=== PATIENT | male | born 1960 | race Caucasian/White ===

== ENCOUNTER 2016-05-25 08:00 | Outpatient (CLI) | payer MEDICAID | END 2016-05-25 08:01 | disposition home or self-care (01) | DX: M25.511 Pain in right shoulder (principal) ==

== ENCOUNTER 2016-07-20 15:13 | Outpatient (CLI) | payer MEDICAID | END 2016-07-20 15:14 | disposition home or self-care (01) | DX: E11.65 Type 2 diabetes mellitus with hyperglycemia (principal) ==

== ENCOUNTER 2016-07-22 08:00 | Outpatient (CLI) | payer MEDICAID | END 2016-07-22 23:59 | DX: M25.511 Pain in right shoulder (principal) ==

== ENCOUNTER 2016-10-25 11:03 | Outpatient (CLI) | payer MEDICAID ==
[2016-10-25 19:03] LABS: HEMOGLOBIN A1C 1.07 g/dL
== END 2016-10-25 11:04 | disposition home or self-care (01) ==
LOC: LAB.S 11:03
PROVIDERS: ATTEND Nurse Practitioner Family
DX: E11.65 Type 2 diabetes mellitus with hyperglycemia (principal)
CPT/HCPCS: 36415; 83036

== ENCOUNTER 2017-02-28 11:07 | Outpatient (CLI) | payer MEDICAID ==
[2017-02-28 18:54] LABS: BASOPHILS # (AUTO) 0.1 10^3/uL (0.0-0.1); BASOPHILS % (AUTO) 0.3 %; EOSINOPHILS # (AUTO) 0.7 10^3/uL (0.0-0.7); HCT - HEMATOCRIT 48.3 % (42.0-52.0); LYMPHOCYTES # (AUTO) 3.9 10^3/uL (1.5-3.5); LYMPHOCYTES % (AUTO) 20.8 %; MEAN CORPUSCULAR HGB CONC 33.1 g/dL (32.0-36.0); MEAN CORPUSCULAR VOLUME 87.6 fL (80.0-94.0); MEAN PLATELET VOLUME 9.1 fL (7.4-11.4); MONOCYTES # (AUTO) 0.8 10^3/uL (0.0-1.0); MONOCYTES % (AUTO) 4.4 %; NEUTROPHILS # (AUTO) 13.2 10^3/uL (1.5-6.6); NEUTROPHILS % (AUTO) 70.5 %; RED BLOOD COUNT 5.51 10^6/uL (4.70-6.10); UNCORRECTED WHITE BLOOD COUNT 18.7 x10^3/uL; WHITE BLOOD COUNT 18.7 x10^3/uL (4.8-10.8)
[2017-02-28 19:16] LABS: BILIRUBIN,URINE NEGATIVE (NEGATIVE); PH,URINE 5.5 PH (5.0-7.5)
[2017-02-28 19:19] LABS: ALBUMIN/GLOBULIN RATIO 1.6 (1.0-2.2); BILIRUBIN,TOTAL 0.3 mg/dL (0.2-1.0); BUN - BLOOD UREA NITROGEN 12 mg/dL (6-20); CALCIUM 9.3 mg/dL (8.5-10.3); CARBON DIOXIDE - CO2 29 mmol/L (21-32); CHLORIDE 100 mmol/L (101-111); CHOL/HDL RATIO 3.2 (<5.0); CHOLESTEROL 121 mg/dL; CREATININE 0.6 mg/dL (0.6-1.2); GFR - MDRD 139 (>89); GLUCOSE 93 mg/dL (70-100); HDL CHOLESTEROL 38 mg/dL; LDL/HDL RATIO 1.6 (<3.6); POTASSIUM 4.2 mmol/L (3.5-5.0); SODIUM 135 mmol/L (135-145); TOTAL PROTEIN 7.1 g/dL (6.7-8.2); TRIGLYCERIDES 106 mg/dL; VLDL CHOLESTEROL 21 mg/dL
[2017-02-28 19:49] LABS: UR CULTURE IF IND NOT INDICATED; WBC,URINE 0-3 /HPF (0-3)
[2017-02-28 20:13] LABS: HEMOGLOBIN A1C 1.03 g/dL
== END 2017-02-28 11:08 | disposition home or self-care (01) ==
LOC: LAB.WCP 11:07
PROVIDERS: ATTEND Nurse Practitioner Family
DX: E11.65 Type 2 diabetes mellitus with hyperglycemia (principal); E78.5 Hyperlipidemia, unspecified
CPT/HCPCS: 36415; 80053; 80061; 81001; 82043; 82570; 83036; 84443; 85025; 87086

== ENCOUNTER 2017-03-04 15:00 | Outpatient (CLI) | payer MEDICAID | END 2017-03-04 15:01 | disposition home or self-care (01) | LOC: LAB.WCP 15:00 | PROVIDERS: ATTEND Nurse Practitioner Family | DX: Z20.5 Contact with and (suspected) exposure to viral hepatitis (principal) | CPT/HCPCS: 36415; 86803 ==

== ENCOUNTER 2017-06-02 08:00 | Outpatient (CLI) | payer MEDICAID ==
[2017-06-02 13:41] LABS: HB2 TOTAL 17.9 g/dL; HEMOGLOBIN A1C 1.1 g/dL; HEMOGLOBIN A1C % 7.8 % (4.6-6.2)
== END 2017-06-02 08:01 | disposition home or self-care (01) ==
LOC: LAB.WCP 08:00
PROVIDERS: ATTEND Nurse Practitioner Family
DX: E11.65 Type 2 diabetes mellitus with hyperglycemia (principal)
CPT/HCPCS: 36415; 83036

== ENCOUNTER 2017-08-31 08:00 | Outpatient (CLI) | payer MEDICAID ==
[2017-08-31 19:24] LABS: HB2 TOTAL 17.6 g/dL; HEMOGLOBIN A1C 1.21 g/dL; HEMOGLOBIN A1C % 8.4 % (4.6-6.2)
== END 2017-08-31 08:01 ==
LOC: LAB.WCP 08:00
PROVIDERS: ATTEND Nurse Practitioner Family
DX: E11.65 Type 2 diabetes mellitus with hyperglycemia (principal)
CPT/HCPCS: 36415; 83036

== ENCOUNTER 2017-12-01 08:00 | Outpatient (CLI) | payer MEDICAID ==
[2017-12-01 12:50] LABS: PSA FREE 0.88 ng/mL (0.16-2.81)
[2017-12-01 12:51] LABS: HB2 TOTAL 17.7 g/dL; HEMOGLOBIN A1C 1.23 g/dL; HEMOGLOBIN A1C % 8.5 % (4.6-6.2)
[2017-12-01 12:52] LABS: PSA TOTAL 6.21 ng/mL (0.000-2.000)
== END 2017-12-01 08:01 | disposition home or self-care (01) ==
LOC: LAB.WCP 08:00
PROVIDERS: ATTEND Nurse Practitioner Family
DX: R97.20 Elevated prostate specific antigen [PSA] (principal); E11.9 Type 2 diabetes mellitus without complications
CPT/HCPCS: 36415; 83036; 84154

== ENCOUNTER 2017-12-21 16:05 | Outpatient (CLI) | payer MEDICAID ==
--- NOTE | 2017-12-22 12:42 | XRAY Report ---
Procedure Date: 12/21/2017 Accession Number: [id number] / [id number] Procedure: XRS - Cervical Spine 2 View CPT Code: FULL RESULT: EXAM: Cervical Spine 2 View DATE: 12/21/2017 4:38 PM CLINICAL HISTORY: SHOULDER, NECK BACK PAIN, RIGHT COMPARISON: None. TECHNIQUE: 3 views. FINDINGS: Alignment: Straightening of the normal cervical lordosis. Bones: The cervical vertebral bodies and posterior elements are well visualized from the skull base through C7-T1. No fractures or bone lesions. Disks: Normal. Disk heights are maintained. Facets: No degenerative disease. Soft Tissues: Scant carotid calcifications. No prevertebral soft tissue swelling. The visualized lung apices are clear. Minimal degenerative disease about the uncovertebral joints. IMPRESSION: Minimal degenerative disease, otherwise normal cervical spine radiographs. [facility]
--- NOTE | 2017-12-22 12:47 | XRAY Report ---
Procedure Date: 12/21/2017 Accession Number: [id number] / [id number] Procedure: XRS - Shoulder 2 View RT CPT Code: FULL RESULT: EXAM: Shoulder 2 View RT DATE: 12/21/2017 4:38 PM CLINICAL HISTORY: SHOULDER, NECK BACK PAIN, RIGHT COMPARISON: None. TECHNIQUE: 3 views. FINDINGS: Bones: Normal. No fracture or bone lesion. Joints: The glenohumeral articulation is normal. The acromioclavicular joint demonstrates mild degenerative changes. Soft tissues: A 3 mm well-rounded calcific density medial to the proximal humeral diametaphysis is of uncertain clinical significance. IMPRESSION: No fracture or dislocation. Soft tissue calcification of uncertain significance as described. This is less likely to represent an occult fracture donor fragment. [facility]
== END 2017-12-21 16:06 | disposition home or self-care (01) ==
LOC: DI.S 16:05
PROVIDERS: ATTEND Nurse Practitioner Family
DX: M25.511 Pain in right shoulder (principal); M54.2 Cervicalgia
CPT/HCPCS: 72040

== ENCOUNTER 2018-03-01 11:20 | Outpatient (CLI) | payer MEDICAID ==
[2018-03-01 18:47] LABS: BASOPHILS # (AUTO) 0.1 10^3/uL (0.0-0.1); BASOPHILS % (AUTO) 0.4 %; EOSINOPHILS # (AUTO) 0.7 10^3/uL (0.0-0.7); EOSINOPHILS % (AUTO) 5.2 %; HGB - HEMOGLOBIN 15.6 g/dL (14.0-18.0); LYMPHOCYTES # (AUTO) 2.9 10^3/uL (1.5-3.5); MEAN CORPUSCULAR HEMOGLOBIN 30.2 pg (27.0-31.0); MEAN CORPUSCULAR HGB CONC 33.7 g/dL (32.0-36.0); MEAN CORPUSCULAR VOLUME 89.5 fL (80.0-94.0); MEAN PLATELET VOLUME 9.1 fL (7.4-11.4); MONOCYTES # (AUTO) 0.9 10^3/uL (0.0-1.0); MONOCYTES % (AUTO) 6.6 %; NEUTROPHILS # (AUTO) 8.6 10^3/uL (1.5-6.6); NEUTROPHILS % (AUTO) 65.8 %; PLT - PLATELET COUNT 281 10^3/uL (130-450); RED BLOOD COUNT 5.18 10^6/uL (4.70-6.10); RED CELL DISTRIBUTION WIDTH 13.7 % (12.0-15.0); WHITE BLOOD COUNT 13.1 x10^3/uL (4.8-10.8)
[2018-03-01 19:22] LABS: CHOL/HDL RATIO 2.8 (<5.0); CHOLESTEROL 133 mg/dL; HDL CHOLESTEROL 48 mg/dL; LDL CHOLESTEROL,CALCULATED 65 mg/dL; LDL/HDL RATIO 1.4 (<3.6); VLDL CHOLESTEROL 20 mg/dL
[2018-03-01 20:14] LABS: HB2 TOTAL 16.8 g/dL; HEMOGLOBIN A1C 1.02 g/dL; HEMOGLOBIN A1C % 7.7 % (4.6-6.2)
== END 2018-03-01 11:21 | disposition home or self-care (01) ==
LOC: LAB.WCP 11:20
PROVIDERS: ATTEND Nurse Practitioner Family
DX: E78.5 Hyperlipidemia, unspecified (principal); E11.65 Type 2 diabetes mellitus with hyperglycemia
CPT/HCPCS: 36415; 80061; 82043; 83036; 83721; 84443; 85025

== ENCOUNTER 2018-07-06 13:33 | Outpatient (CLI) | payer MEDICAID ==
[2018-07-06 19:45] LABS: HEMOGLOBIN A1C 1.09 g/dL
== END 2018-07-06 13:34 | disposition home or self-care (01) ==
LOC: LAB.WCP 13:33
PROVIDERS: ATTEND Nurse Practitioner Family
DX: E11.8 Type 2 diabetes mellitus with unspecified complications (principal)
CPT/HCPCS: 36415; 83036

== ENCOUNTER 2018-10-06 13:13 | Outpatient (CLI) | payer MEDICAID ==
[2018-10-06 19:19] LABS: HB2 TOTAL 16.8 g/dL; HEMOGLOBIN A1C 1.1 g/dL; HEMOGLOBIN A1C % 8.1 % (4.6-6.2)
== END 2018-10-06 13:14 | disposition home or self-care (01) ==
LOC: LAB.WCP 13:13
PROVIDERS: ATTEND Nurse Practitioner Family
DX: E11.65 Type 2 diabetes mellitus with hyperglycemia (principal)
CPT/HCPCS: 36415; 83036

== ENCOUNTER 2018-12-20 10:09 | Outpatient (CLI) | payer MEDICAID ==
[2018-12-20 13:41] LABS: HB2 TOTAL 18.4 g/dL; HEMOGLOBIN A1C 1.26 g/dL; HEMOGLOBIN A1C % 8.4 % (4.6-6.2)
== END 2018-12-20 23:59 | disposition home or self-care (01) ==
LOC: LAB.WCP 10:09
PROVIDERS: ATTEND Physician Assistant Medical
DX: E11.65 Type 2 diabetes mellitus with hyperglycemia (principal)
CPT/HCPCS: 36415; 83036

== ENCOUNTER 2019-03-19 08:00 | Outpatient (CLI) | payer MEDICAID ==
[2019-03-19 21:52] LABS: HB2 TOTAL 16.8 g/dL; HEMOGLOBIN A1C 1.1 g/dL; HEMOGLOBIN A1C % 8.1 % (4.6-6.2)
== END 2019-03-19 08:01 | disposition home or self-care (01) ==
LOC: LAB.WCP 08:00
PROVIDERS: ATTEND Internal Medicine
DX: E11.65 Type 2 diabetes mellitus with hyperglycemia (principal)
CPT/HCPCS: 36415; 83036

== ENCOUNTER 2019-05-11 14:25 | Outpatient (CLI) | payer MEDICAID ==
[2019-05-11 18:39] LABS: BASOPHILS % (AUTO) 0.3 %; EOSINOPHILS # (AUTO) 0.7 10^3/uL (0.0-0.7); EOSINOPHILS % (AUTO) 5.5 %; HGB - HEMOGLOBIN 15.6 g/dL (14.0-18.0); LYMPHOCYTES # (AUTO) 3.7 10^3/uL (1.5-3.5); MEAN CORPUSCULAR HEMOGLOBIN 29.2 pg (27.0-31.0); MEAN CORPUSCULAR HGB CONC 32.6 g/dL (32.0-36.0); MEAN CORPUSCULAR VOLUME 89.5 fL (80.0-94.0); MEAN PLATELET VOLUME 10.8 fL (7.4-11.4); MONOCYTES # (AUTO) 0.8 10^3/uL (0.0-1.0); MONOCYTES % (AUTO) 6.6 %; NEUTROPHILS % (AUTO) 57.1 %; PLT - PLATELET COUNT 304 10^3/uL (130-450); RED BLOOD COUNT 5.35 10^6/uL (4.70-6.10); RED CELL DISTRIBUTION WIDTH 13.1 % (12.0-15.0); WHITE BLOOD COUNT 12.3 x10^3/uL (4.8-10.8)
[2019-05-11 19:04] LABS: ALBUMIN/GLOBULIN RATIO 1.5 (1.0-2.2); ALKALINE PHOSPHATASE 43 IU/L (42-121); ALT ALANINE AMINOTRANSFERASE 14 IU/L (10-60); AST ASPARTATE AMINOTRANSFERASE 16 IU/L (10-42); BILIRUBIN,TOTAL 0.3 mg/dL (0.2-1.0); BUN - BLOOD UREA NITROGEN 15 mg/dL (6-20); CALCIUM 9.2 mg/dL (8.5-10.3); CARBON DIOXIDE - CO2 30 mmol/L (21-32); CHLORIDE 102 mmol/L (101-111); CHOL/HDL RATIO 3.3 (<5.0); CHOLESTEROL 132 mg/dL; CREATININE 0.6 mg/dL (0.6-1.2); GFR - MDRD 137 (>89); GLUCOSE 246 mg/dL (70-100); HDL CHOLESTEROL 40 mg/dL; LDL CHOLESTEROL,CALCULATED 69 mg/dL; LDL/HDL RATIO 1.7 (<3.6); SODIUM 140 mmol/L (135-145); TOTAL PROTEIN 6.7 g/dL (6.7-8.2); VLDL CHOLESTEROL 23 mg/dL
== END 2019-05-11 23:59 | disposition home or self-care (01) ==
LOC: LAB.WCP 14:25
PROVIDERS: ATTEND Physician Assistant Medical
DX: Z51.81 Encounter for therapeutic drug level monitoring (principal); Z79.899 Other long term (current) drug therapy; E78.5 Hyperlipidemia, unspecified
CPT/HCPCS: 36415; 80053; 80061; 83721; 85025

== ENCOUNTER 2019-06-20 08:00 | Outpatient (CLI) | payer MEDICAID ==
[2019-06-20 19:43] LABS: HB2 TOTAL 16.2 g/dL; HEMOGLOBIN A1C 1.02 g/dL; HEMOGLOBIN A1C % 7.9 % (4.6-6.2)
[2019-06-20 19:49] LABS: CALCIUM 9.1 mg/dL (8.5-10.3); CREATININE 0.6 mg/dL (0.6-1.2)
== END 2019-06-20 23:59 | disposition home or self-care (01) ==
LOC: LAB.WCP 08:00
PROVIDERS: ATTEND Physician Assistant Medical
DX: E11.8 Type 2 diabetes mellitus with unspecified complications (principal)
CPT/HCPCS: 36415; 80048; 83036

== ENCOUNTER 2019-06-21 08:00 | Outpatient (CLI) | payer MEDICAID ==
--- NOTE | 2019-06-21 14:33 | XRAY Report ---
Reason: LEFT SHOULDER PAIN Procedure Date: 06/21/2019 Accession Number: [id number] / [id number] Procedure: WCP - Shoulder 3 View LT CPT Code: Final Report FULL RESULT: EXAM: LEFT SHOULDER RADIOGRAPHY 3 VIEWS EXAM DATE: 06/21/2019. CLINICAL HISTORY: LEFT shoulder pain. COMPARISON: None. TECHNIQUE: AP, Grashey and scapular Y views. FINDINGS: Bones: Normal. No fracture or bone lesion. Joints: Mild narrowing and spurring of the acromioclavicular joint. The glenohumeral joint appears normal. Soft tissues: No calcifications. The visualized left lung is clear. IMPRESSION: Mild degenerative changes of the acromioclavicular joint. Otherwise normal examination. [facility]
== END 2019-06-21 08:01 | disposition home or self-care (01) ==
LOC: DI.WCP 08:00
PROVIDERS: ATTEND Physician Assistant Medical
DX: M19.012 Primary osteoarthritis, left shoulder (principal)

== ENCOUNTER 2019-07-17 15:04 | Outpatient (CLI) | payer MEDICAID ==
[2019-07-17 15:05] LABS: MUDS CUTOFF CONCENTRATIONS CUTOFF CONC BELOW:
[2019-07-17 19:08] LABS: AMPHETAMINE SCREEN,URINE NEGATIVE (NEGATIVE); BENZODIAZEPINES SCREEN, URINE NEGATIVE (NEGATIVE); COCAINE SCREEN URINE NEGATIVE (NEGATIVE); METHADONE SCREEN, URINE NEGATIVE (NEGATIVE); METHAMPHETAMINES SCREEN, URINE NEGATIVE (NEGATIVE); OPIATE SCREEN, URINE NEGATIVE (NEGATIVE); TRICYCLIC ANTIDEPRESSANT,URINE NEGATIVE (NEGATIVE)
[2019-07-17 19:09] LABS: OXYCODONE SCREEN, URINE NEGATIVE (NEGATIVE); PROPOXYPHENE SCREEN, URINE NEGATIVE (NEGATIVE)
[2019-07-17 19:11] LABS: PSA FREE 0.779 ng/mL (0.16-2.81)
[2019-07-17 19:12] LABS: PSA TOTAL 4.697 ng/mL (0.000-2.000)
[2019-07-17 19:13] LABS: CREATININE,URINE 309.4 mg/dL; MICROALBUM/CREATININE RATIO,UR 29.4 ug/mg (<30.0); MICROALBUMIN,URINE 9.1 mg/dL (0-300.0)
== END 2019-07-17 23:59 | disposition home or self-care (01) ==
LOC: LAB.WCP 15:04
PROVIDERS: ATTEND Physician Assistant Medical
DX: G89.29 Other chronic pain (principal); E11.65 Type 2 diabetes mellitus with hyperglycemia; Z12.5 Encounter for screening for malignant neoplasm of prostate; R97.20 Elevated prostate specific antigen [PSA]; F11.90 Opioid use, unspecified, uncomplicated
CPT/HCPCS: 36415; 80306; 82043; 82570; 84153; 84154

== ENCOUNTER 2019-09-25 08:00 | Outpatient (CLI) | payer MEDICAID ==
[2019-09-25 13:33] LABS: HB2 TOTAL 17.3 g/dL; HEMOGLOBIN A1C 1.37 g/dL; HEMOGLOBIN A1C % 9.4 % (4.6-6.2)
[2019-09-25 13:36] LABS: CALCIUM 9.3 mg/dL (8.5-10.3); CREATININE 0.6 mg/dL (0.6-1.2)
== END 2019-09-25 23:59 | disposition home or self-care (01) ==
LOC: LAB.WCP 08:00
PROVIDERS: ATTEND Physician Assistant Medical
DX: E11.65 Type 2 diabetes mellitus with hyperglycemia (principal)
CPT/HCPCS: 36415; 80048; 83036

== ENCOUNTER 2020-02-05 11:10 | Outpatient (CLI) | payer MEDICAID ==
[2020-02-05 19:19] LABS: CALCIUM 9.3 mg/dL (8.5-10.3); CREATININE 0.7 mg/dL (0.6-1.2)
[2020-02-05 20:00] LABS: HEMOGLOBIN A1c% 9.1 % (4.27-6.07)
== END 2020-02-05 23:59 | disposition home or self-care (01) ==
LOC: LAB.WCP 11:10
PROVIDERS: ATTEND Nurse Practitioner Family
DX: E10.49 Type 1 diabetes mellitus with other diabetic neurological complication (principal)
CPT/HCPCS: 36415; 80048; 83036

== ENCOUNTER 2020-04-06 09:09 | Emergency (ER) | payer MEDICAID ==
[2020-04-06] MEDS ORDERED: ASPIRIN 325 MG TABLET PO STA (09:36)
--- NOTE | 2020-04-06 09:53 | ED Physician Documentation ---
History of Present Illness - Stated complaint Stated Complaint: LT SHOULDER PX - Chief complaint Chief Complaint: Ext Problem - History obtained from History obtained from: Patient - Additonal information Additional information: 59-year-old man, smoker, with past medical history diabetes high blood pressure cholesterol and COPD presents with sudden onset left shoulder pain radiating to back starting while driving from [place] yesterday. Patient has had progressive worsening of pain and is now unable to move the arm without pain. constant, aching, moderate severity, without associated features. denies Fever, shortness of breath, nausea, diaphoresis, tearing pain in the back. No hemoptysis, no history of clots, no steroid use. Review of Systems Ten Systems: 10 systems reviewed and negative Constitutional: denies: Fever, Chills Cardiac: denies: Chest pain / pressure, Palpitations Respiratory: reports: Dyspnea (mild dyspnea 2/2 pain). denies: Cough GI: denies: Nausea, Vomiting Musculoskeletal: reports: Neck pain, Back pain, Extremity pain (L arm pain) PD PAST MEDICAL HISTORY - Past Medical History Cardiovascular: None, High cholesterol Respiratory: Asthma Endocrine/Autoimmune: Type 2 diabetes GI: GERD, Other : None HEENT: Chronic hearing loss Psych: None Musculoskeletal: Chronic back pain, Other Derm: None - Past Surgical History General: Cholecystectomy, Other Ortho: Arthroscopic surgery - Present Medications Home Medications: Ambulatory Orders Medication Instructions Recorded Confirmed Acetaminophen/Cod 300/30 [Tylenol 1 each PO Q4-6H PRN #3 tablet 04/06/20 #3] Albuterol 04/06/20 Gabapentin [Neurontin] 400 mg PO 04/06/20 Glipizide 5 mg PO 04/06/20 metFORMIN [Glucophage] 500 mg PO ONCE 04/06/20 04/06/20 - Allergies Allergies/Adverse Reactions: Allergies Allergy/AdvReac Type Severity Reaction Status Date / Time NSAIDS (Non-Steroidal AdvReac Nausea Verified 04/06/20 09:28 Anti-Inflamma oxycodone HCl * AdvReac Rash Verified 04/06/20 09:28 [From Percocet] - Social History Does the pt smoke?: Yes Smoking Status: Current every day smoker Does the pt drink ETOH?: No Does the pt have substance abuse?: No - Immunizations Immunizations are current?: No - POLST Patient has POLST: No PD ED PE NORMAL - Vitals Vital signs reviewed: Yes - General General: Alert and oriented X 3 - HEENT HEENT: Atraumatic, PERRL, EOMI - Neck Neck: No bony TTP, Other (L lateral neck ttp in trapezius muscle distribution. ) - Cardiac Cardiac: RRR - Respiratory Respiratory: No respiratory distress, Clear bilaterally - Abdomen Abdomen: Non tender, Non distended - Male Male : Deferred - Rectal Rectal: Deferred - Back Back: No spinal TTP - Derm Derm: Normal color, Warm and dry - Extremities Extremities: No deformity, Other (2+ pulses all extremities. L shoulder tender with rom) - Neuro Neuro: Alert and oriented X 3, Other (sensorineural intact all extremities) - Psych Psych: Normal mood, Normal affect Results - Vitals Vitals: Vital Signs - 24 hr 04/06/20 04/06/20 09:20 10:28 Temperature 37.1 C Heart Rate 98 78 Respiratory 18 18 Rate Blood Pressure 127/81 H 141/82 H O2 Saturation 99 99 Oxygen O2 Source Room air - EKG (time done) 0940 Rate: Rate (enter#) (109) Rhythm: Sinus tachycardia [place]: RAD Compare to prior EKG: Unchanged from prior EKG (prior ekg 05/10/15) Computer interpretation: Agree with computer - Labs Labs: Laboratory Tests 04/06/20 04/06/20 04/06/20 10:05 10:05 10:05 WBC 14.6 H RBC 5.65 Hgb 16.9 Hct 50.2 MCV 88.8 MCH 29.9 MCHC 33.7 RDW 12.8 Plt Count 276 MPV 10.3 Neut # (Auto) 10.0 H Lymph # (Auto) 3.0 [place] # (Auto) 0.8 Eos # (Auto) 0.7 Baso # (Auto) 0.1 Absolute Nucleated RBC 0.00 Nucleated RBC % 0.0 D-Dimer 245.3 Sodium 137 Potassium 4.0 Chloride 100 L Carbon Dioxide 25 Anion Gap 12.0 BUN 19 Creatinine 0.5 L Estimated GFR (MDRD) 170 Glucose 265 H Calcium 9.4 Total Bilirubin 0.5 AST 16 ALT 15 Alkaline Phosphatase 43 Troponin I High Sens Total Protein 7.2 Albumin 4.1 Globulin 3.1 Albumin/Globulin Ratio 1.3 Lipase 17 L 04/06/20 10:05 WBC RBC Hgb Hct MCV MCH MCHC RDW Plt Count MPV Neut # (Auto) Lymph # (Auto) [place] # (Auto) Eos # (Auto) Baso # (Auto) Absolute Nucleated RBC Nucleated RBC % D-Dimer Sodium Potassium Chloride Carbon Dioxide Anion Gap BUN Creatinine Estimated GFR (MDRD) Glucose Calcium Total Bilirubin AST ALT Alkaline Phosphatase Troponin I High Sens 2.9 Total Protein Albumin Globulin Albumin/Globulin Ratio Lipase PD MEDICAL DECISION MAKING - ED course Complexity details: reviewed results, re-evaluated patient, d/w patient ED course: 59-year-old man with past medical history of chronic upper back pain and osteoarthritis presents with left shoulder pain moving to neck and back. Pain is in muscular distribution and reproducible with palpation and range of motion exercises. Unfortunately it did not resolve with medications in the emergency room so patient was counseled to follow-up with physical therapy and continue with conservative management. Cardiac etiology unlikely given atypical symptoms. Patient counseled to follow-up with primary for cardiology referral.strict return precautions given. Departure - Departure Disposition: Home, Self Care Clinical Impression: Shoulder pain, left Condition: Stable Instructions: ED Strain Muscle Ext Prescriptions: Acetaminophen/Cod 300/30 [Tylenol #3] 1 each PO Q4-6H PRN #3 tablet PRN Reason: Pain Comments: You have been seen in the emergency department for shoulder pain. We checked your heart and there were no new problems on bloodwork, ekg, and chest xray. You have severe osteoarthritis of the left shoulder on your shoulder xray. You will benefit from seeing a physical therapist. Consider asking your doctor for a TENS unit to relieve your pain. Follow-up with [facility] at [address], [place]. Phone number [phone] You Should also follow-up with your primary doctor for further heart testing if you have not had a stress test in the past 2 to 3 years. Your primary can refer you to a plasma center nurse. Discharge Date/Time: 04/06/20 11:24
--- NOTE | 2020-04-06 10:08 | XRAY Report ---
PROCEDURE: Shoulder 2 View LT INDICATIONS: shoulder pain TECHNIQUE: 3 views of the shoulder were acquired. COMPARISON: None. FINDINGS: Bones: No fractures or dislocations. No suspicious bony lesions. Visualized ribs appear intact. M ild periarticular osteophyte formation at the acromioclavicular and glenohumeral joint. Soft tissues: No suspicious soft tissue calcifications. IMPRESSION: Osteoarthritis. No acute fracture. No osseous lesion. If symptoms and/or clinical suspic ion for pathology continue, further assessment with repeat plain films, or advanced imaging (e.g., CT , MRI, or bone scan) is recommended for further assessment. Reviewed by: Modesto Shell MD on 04/06/2020 9:07 AM [facility] Approved by: Modesto Shell MD on 04/06/2020 9:07 AM [facility] Station ID: [id number]
--- NOTE | 2020-04-06 10:08 | XRAY Report ---
PROCEDURE: Chest 1 View X-Ray INDICATIONS: Chest Pain TECHNIQUE: One view of the chest was acquired. COMPARISON: 08.03.14 FINDINGS: Surgical changes and devices: None. Lungs and pleura: No pleural effusions or pneumothorax. Lungs are clear. Mediastinum: Mediastinal contours appear normal. Heart size is normal. Bones and chest wall: No suspicious bony lesions. Overlying soft tissues appear unremarkable. IMPRESSION: No acute process. Reviewed by: Modesto Shell MD on 04/06/2020 9:06 AM [facility] Approved by: Modesto Shell MD on 04/06/2020 9:06 AM [facility] Station ID: [id number]
[2020-04-06 10:09] LABS: BASOPHILS # (AUTO) 0.1 10^3/uL (0.0-0.1); BASOPHILS % (AUTO) 0.3 %; EOSINOPHILS # (AUTO) 0.7 10^3/uL (0.0-0.7); HGB - HEMOGLOBIN 16.9 g/dL (14.0-18.0); LYMPHOCYTES % (AUTO) 20.6 %; MEAN CORPUSCULAR HEMOGLOBIN 29.9 pg (27.0-31.0); MEAN CORPUSCULAR HGB CONC 33.7 g/dL (32.0-36.0); MEAN CORPUSCULAR VOLUME 88.8 fL (80.0-94.0); MEAN PLATELET VOLUME 10.3 fL (7.4-11.4); MONOCYTES # (AUTO) 0.8 10^3/uL (0.0-1.0); MONOCYTES % (AUTO) 5.5 %; NEUTROPHILS % (AUTO) 68.2 %; PLT - PLATELET COUNT 276 10^3/uL (130-450); RED BLOOD COUNT 5.65 10^6/uL (4.70-6.10); RED CELL DISTRIBUTION WIDTH 12.8 % (12.0-15.0); WHITE BLOOD COUNT 14.6 x10^3/uL (4.8-10.8)
[2020-04-06 10:26] LABS: ALBUMIN 4.1 g/dL (3.2-5.5); ALBUMIN/GLOBULIN RATIO 1.3 (1.0-2.2); BILIRUBIN,TOTAL 0.5 mg/dL (0.2-1.0); CALCIUM 9.4 mg/dL (8.5-10.3); CREATININE 0.5 mg/dL (0.6-1.2); TOTAL PROTEIN 7.2 g/dL (6.7-8.2)
[2020-04-06] MEDS ORDERED: ACETAMINOPHEN/CODEINE 300 MG/30 MG TABLET PO STA (10:43)
[2020-04-06 11:04] VITALS: BP 141/82
== END 2020-04-06 11:24 | disposition home or self-care (01) ==
LOC: ED 09:09
DX: M25.512 Pain in left shoulder (principal); M19.012 Primary osteoarthritis, left shoulder; R00.0 Tachycardia, unspecified; E11.9 Type 2 diabetes mellitus without complications; I10 Essential (primary) hypertension; F17.200 Nicotine dependence, unspecified, uncomplicated; Z79.84 Long term (current) use of oral hypoglycemic drugs
CPT/HCPCS: 36415; 71045; 73030; 80053; 83690; 84484; 85025; 85379; 93005; 99284; 99285; A9270

== ENCOUNTER 2020-05-12 08:00 | Outpatient (CLI) | payer MEDICAID ==
[2020-05-12 18:11] LABS: CALCIUM 9.1 mg/dL (8.5-10.3); CREATININE 0.5 mg/dL (0.6-1.2)
[2020-05-12 20:20] LABS: HEMOGLOBIN A1c% 8.6 % (4.27-6.07)
== END 2020-05-12 23:59 | disposition home or self-care (01) ==
LOC: LAB.WCP 08:00
PROVIDERS: ATTEND Nurse Practitioner Family
DX: E10.49 Type 1 diabetes mellitus with other diabetic neurological complication (principal)
CPT/HCPCS: 36415; 80048; 83036

== ENCOUNTER 2020-05-21 09:14 | Outpatient (CLI) | payer MEDICAID ==
--- NOTE | 2020-05-21 11:01 | XRAY Report ---
PROCEDURE: Knee 3 View RT INDICATIONS: RT KNEE PAIN TECHNIQUE: 3 views of the right knee(s) were acquired. COMPARISON: None. FINDINGS: Bones: No fractures or dislocations. Mild tricompartmental osteoarthritis is seen more prominent in medial femoral tibial compartment. No suspicious bony lesions. Soft tissues: Small to moderate suprapatellar joint effusion is seen. No suspicious soft tissue calci fications. IMPRESSION: Mild tricompartmental osteoarthritis more prominent in medial femoral tibial compartment . Small to moderate suprapatellar joint effusion. Reviewed by: Mic Myers MD on 05/21/2020 11:00 AM PST Approved by: Mic Myers MD on 05/21/2020 11:00 AM PST Station ID: [id number]
--- NOTE | 2020-05-21 11:02 | XRAY Report ---
PROCEDURE: Hip w/Pelvis 2-3V RT INDICATIONS: RT HIP PAIN TECHNIQUE: AP pelvis with lateral view(s) of the right hip(s). COMPARISON: None. FINDINGS: Bones: No fractures or dislocations. Mild right hip joint osteoarthritis is seen. No evidence of av ascular necrosis of femoral head. Pelvic ring appears intact. No suspicious bony lesions. Degenerat barbara disc disease in visualized lower lumbar spine is seen. Soft tissues: The visualized bowel gas pattern is normal. No suspicious soft tissue calcifications. IMPRESSION: Mild right hip joint osseous arthritis. No pelvic or hip fracture. No evidence of avascul ar necrosis. Reviewed by: Mic Myers MD on 05/21/2020 11:00 AM PST Approved by: Mic Myers MD on 05/21/2020 11:00 AM PST Station ID: [id number]
--- NOTE | 2020-05-21 12:12 | CT Report ---
PROCEDURE: CERVICAL SPINE WO INDICATIONS: LT CERVICAL RADICULOPATHY TECHNIQUE: Noncontrast 3 mm thick sections acquired from the skull base to the T4 level. Sagittal and coronal r eformats were then constructed. For radiation dose reduction, the following was used: automated exp osure control, adjustment of mA and/or kV according to patient size. COMPARISON: None. FINDINGS: Image quality: Excellent. Bones: No fractures or dislocations. Visualized superior ribs are intact. Soft tissues: Prevertebral soft tissues are normal in thickness. No paravertebral hematomas. No ap ical pneumothoraces. C2-C3: No canal stenosis. Bilateral facet hypertrophy, left greater than right. Mild to moderate left foraminal narrowing and moderate to severe right foraminal narrowing. C3-C4: Moderate chronic disc height loss. Posterior disc bulge. Right uncovertebral joint hypertrophy . Right facet joint hypertrophy. Moderate to severe right foraminal narrowing and mild left foraminal narrowing. C4-C5: Bilateral facet hypertrophy, right greater than left. Right uncovertebral joint hypertrophy. M oderate to severe right foraminal narrowing. No canal stenosis. C5-C6: Mild right facet hypertrophy. No significant canal stenosis. Mild to moderate right foraminal narrowing. C6-C7: Mild bilateral facet hypertrophy. No canal stenosis or foraminal stenosis. C7-T1: No canal stenosis or foraminal stenosis. IMPRESSION: 1. Diffuse cervical spondylitic change. 2. Multilevel facet arthropathy, right greater than left. 3. Multilevel foraminal narrowing as described above. Reviewed by: Jose Ortiz MD on 05/21/2020 12:11 PM PST Approved by: Jose Ortiz MD on 05/21/2020 12:11 PM PST Station ID: [id number]
== END 2020-05-21 09:15 | disposition home or self-care (01) ==
LOC: DI 09:14
PROVIDERS: ATTEND Nurse Practitioner Family
DX: M47.22 Other spondylosis with radiculopathy, cervical region (principal); M50.11 Cervical disc disorder with radiculopathy, high cervical region; M17.11 Unilateral primary osteoarthritis, right knee; M16.11 Unilateral primary osteoarthritis, right hip
CPT/HCPCS: 72125